=== PATIENT | male | born 1970 | race Caucasian/White ===

== ENCOUNTER 2016-11-07 03:03 | Observation (INO) | payer MEDICAID ==
[~2016-11-07] VITALS: Ht 185.4 cm; Wt 98.6 kg
[2016-11-07 03:39] LABS: BASOPHILS 0.3 % (0.0-2.0); EOSINOPHILS 1.6 % (0-7); HEMATOCRIT 47.7 % (42.0-54.0); HEMOGLOBIN 16.5 g/dL (13.5-17.5); IMMATURE GRANULOCYTES 0.3 % (0-5); LYMPHOCYTES 32.2 % (15-50); MCH 30.6 pg (26.0-34.0); MCHC 34.6 g/dL (31.0-37.0); MCV 88.3 fL (80.0-100.0); MEAN PLATELET VOLUME 11.3 fL (7.4-10.4); MONOCYTES 8.9 % (2-11); NEUTROPHILS 56.7 % (40-80); PLATELET COUNT 171 10x3/uL (130-400); RDW 12.6 % (11.5-14.5); WBC 7.7 10x3/uL (4.8-10.8)
[2016-11-07 04:04] LABS: ALBUMIN 3.9 g/dL (3.4-5.0); ALKALINE PHOSPHATASE 63 U/L (46-116); BILIRUBIN - TOTAL 0.22 mg/dL (0.2-1.3); CALCIUM 8.7 mg/dL (8.5-10.1); CARBON DIOXIDE 29.8 mmol/L (21.0-32.0); CHLORIDE - SERUM 101 mmol/L (98-107); CKMB 1.7 U/L (0.0-3.6); CREATINE KINASE 171 UL (21-232); CREATININE - SERUM 1.3 mg/dL (0.6-1.3); MAGNESIUM - SERUM 1.9 mg/dL (1.8-2.4); POTASSIUM - SERUM 3.7 mmol/L (3.5-5.1); SODIUM 139 mmol/L (136-145); UREA NITROGEN 21 mg/dL (7-18); eGFR NON AFRICAN AMERICAN 63 mL/min (90-120)
[2016-11-07 04:07] LABS: ALT (SGPT) 79 U/L (10-68); CALC OSMOLALITY 280 mosm/kg (275-300); GLUCOSE 106 mg/dL (74-106); TROPONIN-I < 0.017 ng/mL (0.000-0.060)
[2016-11-07 07:02] LABS: APTT 27.1 SECONDS (22.8-39.4); INR 0.86 (0.85-1.17); PROTIME 11.5 SECONDS (11.6-15.0)
--- NOTE | 2016-11-07 07:55 | NUR ---
TRANSFERED FROM ER BY STRETCHER. OREINTED TO ROOM. CALL LIGHT IN REACH. WILL CONT. PLAN OF CARE.
[2016-11-07 08:15] VITALS: BP 140/84; Ht 185.4 cm; Wt 98.6 kg
[2016-11-07] MEDS ORDERED: PRINIVIL20 MG PO (08:22)
[2016-11-07] MEDS ORDERED: METOPROLOL TART50 MG PO (08:23)
[2016-11-07] MEDS ORDERED: ZANTAC300 MG PO (08:24)
[2016-11-07] MEDS ORDERED: XANAX1 MG PO (08:25)
[2016-11-07] MEDS ORDERED: ASPIRIN325 MG PO (08:26)
[2016-11-07 08:55] VITALS: BP 140/84
--- NOTE | 2016-11-07 10:57 | NUR ---
IV AND TELEMETRY DCD. DC PLANS GIVEN. UNDERSTANDING VOICED. ESCORTED TO CAR BY W/C.
--- NOTE | 2016-11-09 14:16 | HP ---
PATIENT: WILLOW GALLGEOS MEDICAL RECORD: [id number] ACCOUNT: [id number] LOCATION:[facility] D.[id number] : 68 ADMISSION DATE: 11/07/16 HISTORY AND PHYSICAL EXAMINATION ADMITTING DIAGNOSES: 1. Paroxysmal atrial fibrillation. 2. Hypertension. HISTORY OF PRESENT ILLNESS: This is a gentleman who has a history of atrial fibrillation; last hospitalization was 6 months ago. He was seen by ____, had cardiac catheterization. This was normal. He was placed on metoprolol and lisinopril for blood pressure and atrial fibrillation, presents with 1 day of palpitations, found to be in atrial fibrillation with rapid ventricular response. PHYSICAL EXAMINATION: GENERAL APPEARANCE: Well-nourished, well-developed, appears stated age. Level of distress, comfortable. PSYCHIATRIC: Mental status, alert, normal affect. Orientation, oriented to time, place and person. EYES: Lids and conjunctiva, noninjected. No discharge, no pallor. ENT: Lips, teeth, gums, normal dentition. Oropharynx, no cyanosis, no pallor. NECK: Carotid arteries, bilateral normal upstroke, no bruits, no thrills. JUGULAR VEINS: No jugular venous pressure or distention. CERVICAL LYMPH NODES: Nontender, nonenlarged. THYROID: Not enlarged. Nontender. No nodules. LUNGS: Respiratory effort, unlabored. CHEST: Normal curvature. No thoracic deformity. No chest wall tenderness. Percussion, resonant. Auscultation, clear. No wheezes, no rales, no rhonchi. CARDIOVASCULAR: Precordial exam, nondisplaced. No heaves or pericardial thrills. Heart is irregularly irregular in atrial fibrillation. Heart sounds, normal S1, normal S2. No S3, no gallop, no rub. Systolic murmur, not heard. Diastolic murmur, not heard. EXTREMITIES: No cyanosis, no edema. Peripheral pulses, full and equal in all extremities, except as noted. No bruits appreciated. ABDOMEN: Soft, nondistended. Normal aorta. No bruit. Nontender. No masses. Liver, nontender, no hepatomegaly. Spleen, nontender, no splenomegaly. MUSCULOSKELETAL: No joint tenderness. No joint swelling. No erythema. NEUROLOGICAL: Normal gait, normal strength, normal tone. SKIN: Warm and dry. REVIEW OF SYSTEMS: The patient reports easy bruising but reports no swollen glands. The patient reports no fever, no night sweats, no significant weight gain, no significant weight loss. No significant exercise tolerance. The patient reports no dry eyes, no irritation, no vision change. Patient reports no difficulty hearing and no ear pain. Patient reports no frequent nose bleeds or nose and sinus problems. Patient reports on arm pain on exertion. No shortness of breath while lying down. No history of heart murmur. Patient reports no cough, no wheezing or coughing up blood. Patient reports no abdominal pain, no vomiting. Normal appetite. No diarrhea and not vomiting blood. No nausea and no constipation. Patient reports no incontinence. No difficulty urinating. No hematuria. No increased frequency. Patient reports no muscle aches. No weakness, no arthralgias, no back pain. No swelling of the extremities. Patient reports no abnormal mole, no jaundice, no rashes. Reports HISTORY AND PHYSICAL [id number] WILLOW GALLEGOS no loss of consciousness. No weakness and no numbness. No seizures, dizziness, or headaches. The patient reports no depression, no sleep disturbance, feeling safe in a relationship and no alcohol abuse. Patient reports on fatigue. Reports no runny nose or sinus pressure. No itching, no hives, and no frequent sneezing. OVERALL IMPRESSION: Paroxysmal atrial fibrillation, we use IV Cardizem. Hopefully, slow him and convert to sinus rhythm, then decision will be made whether he will to continue the metoprolol or change him to antiarrhythmic medication such as sotalol. TRANSINT:[id number] Voice Confirmation ID: [id number] DOCUMENT ID: [id number] JOE HENRY MD at 1416 CC: [id number] DICTATION DATE: 11/07/1619 WEEKEND RECEPTIONIST: 11/07/16 0949 DIS IN 11/07/16 [id number] [place] [id number]
--- NOTE | 2016-11-09 14:16 | DS ---
PATIENT:WILLOW HIGGINS :68 MEDICAL RECORD: [id number] DISCHARGE SUMMARY ADMISSION DATE: 11/07/16 DISCHARGE DATE: 11/07/16 DATE OF SERVICE: 11/07/2016 DISCHARGE DIAGNOSES: 1. Paroxysmal atrial fibrillation. 2. Hypertension. HOSPITAL COURSE: Mr. Higgins presented with an episode of atrial fibrillation, received IV Cardizem to maintain sinus rhythm. We discussed the options of changing him to sotalol, continuing the Lopressor. At this time, we will continue Lopressor. He will follow up with [facility] in 1 month. TRANSINT:[id number] Voice Confirmation ID: [id number] DOCUMENT ID: [id number] JOE HENRY MD at 1416 CC: [id number] DICTATION DATE: 11/07/16919 MATERIALS MANAGEMENT CLERK: 11/07/16 1244 DIS IN 11/07/16 [facility] [address] [place] [address]
== END 2016-11-07 10:58 | disposition home or self-care (01) ==
LOC: D.ER 03:03 → D.M2 06:41 → OBSVTIME 06:41 → D.M2 10:58
PROVIDERS: Emergency Medicine; ADMIT Internal Medicine Interventional Cardiology
DX: I48.0 Paroxysmal atrial fibrillation (principal); I10 Essential (primary) hypertension